=== PATIENT | male | born 1995 | race Asian ===

== ENCOUNTER 2018-02-24 15:44 | Emergency (ER) | payer OTHER ==
[~2018-02-24] VITALS: Ht 177.8 cm; Wt 68.2 kg
[2018-02-24 15:49] VITALS: BP 136/80
== END 2018-02-24 17:10 | disposition left against medical advice (07) ==
LOC: EMS 15:45
DX: M79.1 Myalgia (principal); R05 Cough; Z53.21 Procedure and treatment not carried out due to patient leaving prior to being seen by health care provider